=== PATIENT | female | born 1995 | race Caucasian/White ===

== ENCOUNTER 2022-10-11 12:20 | Emergency (ER) | payer MEDICAID, OTHER ==
[~2022-10-11] VITALS: Ht 160 cm; Wt 86.0 kg
[~2022-10-11 12:20] MED LIST: CEPH500C2 MT; ONDA4TAB11 PO
[2022-10-11] MEDS ORDERED: PREDNISONE 20MG TABLET PO ONE (16:45)
[2022-10-11] MEDS ORDERED: IPRATROPIUM/ALBUTEROL 0.5-3(2.5)MG/3ML NEB HHN ONE (16:45)
[2022-10-11] MEDS ORDERED: AZIT250T12 MT (17:54)
[2022-10-11] MEDS ORDERED: P50 MT (17:54)
[2022-10-11] MEDS ORDERED: ALBU6.7H3 INH (17:54)
[2022-10-11] MEDS ORDERED: TOPUD MT (17:54)
[2022-10-11] MEDS ORDERED: CLAR10 MT (17:54)
[2022-10-11 18:19] VITALS: BP 132/81
== END 2022-10-11 18:21 | disposition home or self-care (01) ==
LOC: ER 12:20
DX: R05.9 Cough, unspecified (principal); J02.9 Acute pharyngitis, unspecified; R07.9 Chest pain, unspecified; Z20.822 Contact with and (suspected) exposure to COVID-19; Z79.899 Other long term (current) drug therapy
CPT/HCPCS: 87426; 94640; 99283; C9803; J7512; Z7610

== ENCOUNTER 2023-04-18 10:14 | Emergency (ER) | payer OTHER ==
[~2023-04-18] VITALS: Ht 165.1 cm; Wt 68.0 kg
[~2023-04-18 10:14] MED LIST changes: +ALBU6.7H3 INH; +AZIT250T12 MT; +CLAR10 MT; +P50 MT; +TOPUD MT
[2023-04-18 10:40] VITALS: O2SAT 100
[2023-04-18] MEDS ORDERED: KETOROLAC 30MG/ML VIAL IV STA (11:29)
[2023-04-18] MEDS ORDERED: ONDANSETRON HCL 4MG/2ML INJ IV NR (11:29)
[2023-04-18] MEDS ORDERED: KETOROLAC 30MG/ML VIAL IV NR (11:29)
[2023-04-18] MEDS ORDERED: ONDANSETRON HCL 4MG/2ML INJ IV STA (11:29)
[2023-04-18] MEDS ORDERED: FAMOTIDINE 20MG/2ML VIAL IV ONE (11:30)
[2023-04-18] MEDS ORDERED: SODIUM CHLORIDE 0.9% 1,000 ML IV ONE (11:30)
[2023-04-18] MEDS ORDERED: FAMOTIDINE 20MG/2ML VIAL IV NR (11:30)
[2023-04-18 12:13] LABS: HEMATOCRIT. 40.9 % (36.0-48.0); HEMOGLOBIN. 13.5 g/dL (12.0-16.0); MEAN CORPUSCULAR HEMOGLOBIN 30.1 pg (28.0-32.0); MEAN CORPUSCULAR VOLUME 91.3 fL (81.0-99.0); MEAN PLATELET VOLUME 9.6 fl (7.4-10.4); PLATELET 273 x1000/uL (130-400); RED BLOOD CELL COUNT 4.48 mill/uL (4.2-5.4); RED CELL DISTRIBUTION WIDTH 13.4 % (11.6-14.6); WHITE BLOOD COUNT 9.8 x1000/uL (4.5-11.0)
[2023-04-18 12:15] LABS: CLARITY URINE CLEAR (CLEAR); COLOR URINE DARK YELLOW (YELLOW); GLUCOSE URINE NEGATIVE (NEGATIVE); KETONES URINE 3+ (NEGATIVE); LEUKOCYTE ESTERASE URINE NEGATIVE (NEGATIVE); NITRITE URINE NEGATIVE (NEGATIVE); OCCULT BLOOD URINE 2+ (NEGATIVE); PH URINE 6.5 (4.5-8.0); PROTEIN URINE TRACE (NEGATIVE); SPECIFIC GRAVITY URINE 1.036 (1.005-1.030)
[2023-04-18 12:18] LABS: DIFFERENTIAL COMMENT 1
[2023-04-18 12:30] LABS: HCG SCREEN NEGATIVE
[2023-04-18 12:32] LABS: ALANINE AMINOTRANSFERASE 11 IU/L (10-49); ALBUMIN 4.4 g/dL (3.2-4.8); ASPARTATE AMINOTRANSFERASE 18 IU/L (<34); BILIRUBIN TOTAL 1.9 mg/dL (0.1-1.0); CALCIUM 8.9 mg/dL (8.7-10.4); CARBON DIOXIDE 26 mEq/L (21-32); CHLORIDE 107 mEq/L (98-107); CREATININE 0.5 mg/dL (0.6-1.0); GLUCOSE 99 mg/dL (70-105); POTASSIUM 3.7 mEq/L (3.5-5.1); PROTEIN TOTAL 7.8 g/dL (6.0-8.3); SODIUM 140 mEq/L (136-145); UREA NITROGEN BLOOD 16 mg/dL (9-23)
[2023-04-18 12:36] LABS: RBC URINE 15-25 /hpf (0-2); SQUAMOUS EPITHELIAL CELL URINE 1+ /lpf (RARE/1+); WBC URINE 0-2 /hpf (0-2)
[2023-04-18 12:37] LABS: BACTERIA URINE 1+; YEAST URINE NONE SEEN
[2023-04-18 13:35] LABS: PLATELET ESTIMATE NORMAL
[2023-04-18] MEDS ORDERED: ACET-2708 MT (18:23)
[2023-04-18] MEDS ORDERED: ONDA4TAB50 MT (18:23)
[2023-04-18 21:13] VITALS: BP 127/75; PULSE 75; RESP 19; TEMP 98
== END 2023-04-18 21:14 | disposition home or self-care (01) ==
LOC: ER 10:14
DX: R10.9 Unspecified abdominal pain (principal); R11.2 Nausea with vomiting, unspecified; R19.7 Diarrhea, unspecified
CPT/HCPCS: 99285; 74176; 96374; 76830; 76856; 96375; 96361; 80053; 81003; 81025; 84703; 83690; 85025; 36415; J3490; J1885; J2405; J7030